=== PATIENT | male | born 1935 | race Caucasian/White ===

== ENCOUNTER → 2023-10-30 | Outpatient (CLI) | payer MEDICARE ==
--- NOTE | 2023-10-30 11:27 | XR ---
EXAMINATION TYPE: XR ribs RT w pa chest xray DATE OF EXAM: 10/30/2023 COMPARISON: None HISTORY: Pain TECHNIQUE: 2 view right ribs supplemented with an AP chest FINDINGS: Nondisplaced rib fractures of the lateral eighth and ninth ribs is present. No pneumothorax is evident. Large hiatal hernia is present. IMPRESSION: 1. Nondisplaced lateral eighth and ninth rib fractures. 2. Large hiatal hernia
== END | disposition home or self-care (01) ==
LOC: RADXRYALE 09:04
PROVIDERS: ATTEND Physician Assistant
DX: S22.41XA Multiple fractures of ribs, right side, initial encounter for closed fracture (principal); K44.9 Diaphragmatic hernia without obstruction or gangrene